=== PATIENT | male | born 1980 | race Caucasian/White ===

== ENCOUNTER → 2020-12-30 08:04 | Outpatient (CLI) | payer OTHER, SELFPAY ==
[2020-12-30 19:34] LABS: SARS-CoV-2 RNA PCR Positive
== END ==
DX: U07.1 COVID-19 (principal)
CPT/HCPCS: C9803; U0003; U0005

== ENCOUNTER 2022-12-03 08:11 | Outpatient (CLI) | payer BC, SELFPAY ==
[2022-12-03 08:59] LABS: Alanine Aminotransferase 54 U/L (6-50); Albumin Level 4.8 g/dL (3.5-5.1); Alkaline Phosphatase 43 U/L (38-126); Anion Gap 6 mmol/L (8-16); Aspartate Amino Transferase 34 U/L (17-59); Bilirubin,Total 0.8 mg/dL (0.2-1.3); Blood Urea Nitrogen 16 mg/dL (9-20); Calcium 9.5 mg/dL (8.4-10.2); Carbon Dioxide 29 mmol/L (22-30); Chloride 103 mmol/L (98-107); Cholesterol 258 mg/dL (0-200); Estimated Glomerular Filt Rate > 60; Glucose 107 mg/dL (65-110); HDL Direct 44 mg/dL; Potassium 4.7 mmol/L (3.4-5.0); Sodium 138 mmol/L (137-145); Triglycerides 179 mg/dL (<150)
[2022-12-03 09:10] LABS: LDL Cholesterol Direct 140 mg/dL
[2022-12-03 09:43] LABS: Vitamin D 25 Hydroxy 67.6 ng/mL
== END 2022-12-03 08:12 | disposition home or self-care (01) ==
LOC: ANHLAB 08:12
PROVIDERS: PCP Family Medicine; Visit Provider Family Medicine
DX: E78.5 Hyperlipidemia, unspecified (principal); E55.9 Vitamin D deficiency, unspecified; Z76.89 Persons encountering health services in other specified circumstances; Z13.29 Encounter for screening for other suspected endocrine disorder; Z13.228 Encounter for screening for other metabolic disorders; Z13.220 Encounter for screening for lipoid disorders
CPT/HCPCS: 36415; 80053; 80061; 82306; 84443

== ENCOUNTER 2023-07-28 08:52 | Outpatient (CLI) | payer OTHER, SELFPAY ==
--- NOTE | 2023-08-23 19:07 | WPDSLEEPSTUD ---
Sleep Study Date of Study: 07/28/23 Ordering Provider: Marco A Coley DO Interpreting Physician: Christine Marion DO Sleep Study Type: Polysomnogram Height: 1.83 m Weight: 90.718 kg Body Mass Index: 27.1 Neck Circumference (inches): 16 [place]: 8 Reason for Sleep Study Snoring, Dream enactment behavior Sleep History The patient is a 43-year-old male that a sleep study ordered by his primary care physician for evaluation of parasomnias. The patient frequently awakens from sleep short of breath. He rarely awakens at night with heartburn, belching or cough. He occasionally snores but is rarely loud enough that others complain. He occasionally has trouble sleeping when he has a cold. He frequently wakes up gasping for air throughout the night. He frequently has breathing problems at night observed by himself or others. He frequently sweats excessively at night. He occasionally has heart palpitations or irregular heartbeats during the night. He rarely falls asleep during the day but never while driving. He denies sleep paralysis and cataplexy. He rarely has trouble at school or work due to sleepiness. He occasionally experiences vivid dreamlike scenes upon awakening or falling asleep. He denies feeling afraid of going to sleep. He occasionally has nightmares. He frequently remembers his dreams. He rarely has thoughts racing through his mind. He occasionally feels sad or depressed. He frequently has anxiety. He occasionally has muscular tension. He frequently notices parts of his body jerk. He occasionally kicks during the night. He occasionally has crawling and aching feelings in his legs but rarely has leg pain during the night. He constantly grinds his teeth during sleep and frequently awakens with morning jaw pain. He is occasionally bothered by pain during the day but never awakened by pain during the night. He occasionally wakes up feeling stiff in the morning. He occasionally wakes up with sore or achy muscles. He frequently wakes up with pain in the neck, spine and other joints. He goes to bed between 11:00 p.m. to 2 12:00 a.m. on weekdays and between 11:00 p.m. to 1:00 a.m. on the weekends. It takes him 15 minutes to fall asleep. He wakes up 1-2 times throughout the night to urinate or 10 to his children. It takes him no longer than 5 minutes to fall back asleep. He wakes up at 6:30 a.m. on weekdays and 8:30 a.m. on the weekends. He typically gets 6-8 hours of sleep per night. He does not stay in bed longer than 10 minutes after waking up in the morning. He currently lives with his and 2 children. He denies consuming any caffeinated beverages within 2 hours of bedtime. He will engage in physical exercise before bedtime. He will read watch television before falling asleep. He denies taking naps in the afternoon or the evening. He consumes 2-3 caffeinated beverages per day. He quit smoking cigarettes 4 years ago. He consumes 1-2 beers few times per week. He denies recreational drug use. [facility] Family History Family History Father Diabetes mellitus Hypertension Mother Thyroid disease Social History Social History Social History: caffeine 2 cups coffee daily Smoking status: Current every day smoker (Vaping) Alcohol intake: current Drinks per week: 8 Alcohol use details: Beer Lack of Transportation: No Lack of Food: Never True Current Housing: I Have Housing Concerned About Future Housing: No Difficulty Paying Gas/Electric Bills: No Difficulty Paying for Meds: No Currently Unemployed: No Education: Master's Degree or Higher Difficulty w/ Childcare or Family Care: No Living arrangements: with family Occupation/Education: occupation Additional occupation/education comments: [employer] Medications Home Medications Medication Ins
[2023-08-23 19:08] VITALS: BMI 27.1
== END 2023-07-29 07:05 | disposition home or self-care (01) ==
LOC: ANHCSM 08:53
PROVIDERS: PCP Family Medicine; Visit Provider Family Medicine
DX: G47.10 Hypersomnia, unspecified (principal); G47.33 Obstructive sleep apnea (adult) (pediatric); G47.61 Periodic limb movement disorder
CPT/HCPCS: 95810

== ENCOUNTER 2023-12-23 07:47 | Outpatient (CLI) | payer OTHER, SELFPAY ==
[2023-12-23 08:52] LABS: Iron 122 ug/dL (49-181)
[2023-12-23 09:01] LABS: Percent Iron Saturation 35 % (20-50)
[2023-12-23 10:24] LABS: Alanine Aminotransferase 77 U/L (6-50); Albumin Level 4.7 g/dL (3.5-5.1); Alkaline Phosphatase 66 U/L (38-126); Anion Gap 4 mmol/L (4-12); Aspartate Amino Transferase 51 U/L (17-59); Bilirubin,Total 0.7 mg/dL (0.2-1.3); Blood Urea Nitrogen 15 mg/dL (9-20); Calcium 9.5 mg/dL (8.4-10.2); Carbon Dioxide 31 mmol/L (22-30); Chloride 102 mmol/L (98-107); Cholesterol 297 mg/dL (0-200); Estimated Glomerular Filt Rate > 60; Glucose 114 mg/dL (65-110); HDL Direct 48 mg/dL; Potassium 5.1 mmol/L (3.4-5.0); Sodium 137 mmol/L (137-145); Triglycerides 460 mg/dL (<150)
[2023-12-23 10:35] LABS: LDL Cholesterol Direct 148 mg/dL
== END 2023-12-23 07:48 | disposition home or self-care (01) ==
LOC: ANHLAB 07:48
PROVIDERS: PCP Family Medicine; Referring Provider Family Medicine; Visit Provider Family Medicine
DX: E78.5 Hyperlipidemia, unspecified (principal); D50.9 Iron deficiency anemia, unspecified; Z13.228 Encounter for screening for other metabolic disorders; Z13.220 Encounter for screening for lipoid disorders
CPT/HCPCS: 36415; 80053; 80061; 82728; 83540; 83550

== ENCOUNTER 2024-12-26 07:28 | Outpatient (CLI) | payer OTHER, SELFPAY ==
--- OUTSIDE RECORDS SUMMARY | 2024-12-26 07:30 | XMS_ITS | Clinical Summary ---
Author Organization [facility] Address [address] [place] [address] Care Team Providers Care Ring Making Machine Operator Name Role Phone PcpLucero Primary Care Provider Unav ailable Source Comments [facility],non-owned Affiliates and Associated Physician Practices is amultiple site organization consisting of ambulatory clinics and hospital sitesin [place], [place], [place] and [place]. This disclosure is being madepursuant to the Care Everywhere program and may not contain all information available regarding this patient. Last updated 17.[employer] Allergies No known active allergies Medications * Be aware that medications may not be up to date on this document. Alwaysverify current medications with the patient. cyclobenzaprine (FLEXERIL) 10 MG tablet Take 1 (one) tablet by mouth nightly as needed for Muscle Spasms 30 tablet 08/25/2021 Active nebivolol (Bystolic) 10 MG tablet TAKE 1 TABLET DAILY 90 tablet 07/01/2022 Active vitamin D, ergocalciferol, (Drisdol) 1.25 MG (93218 UT) capsule TAKE 1 CAPSULE EVERY 7 DAYS 12 capsule 3 10/21/2022 Active Active Problems Problem Noted Date Diagnosed Date JOHNY (generalized anxiety disorder) 03/27/2020 Vitamin D deficiency 03/27/2020 Somatic dysfunction of cervical region 8 Need for prophylactic vaccin ation and inoculation against influenza 11/28/2017 Hypercholesteremia 08/02/2017 Somatic dysfunction of spine, lumbar 06/27/2017 Somatic dysfunction of pelvis region 06/27/2017 Strain of lumbar region 06/27/2017 Screen for STD (sexually transmitted disease) Benign essential tremor 08/10/2016 Annual physical exam 08/10/2016 Immunizations Immunization Administration Dates Next Due INFLUENZA VACCINE, CELL CULT URE, QUADR. (FLUCELVAX QUADRIVALENT; 6MO+) (CCIIV4) 11/07/2019 INFLUENZA VACCINE, QUADR. (F LUZONE; FLULAVAL; FLUARIX; AFLURIA QUADRIVALENT; 6MO+), 0.5 ML (IIV4) 01/02/2019,11/28/2017 TDAP (7yrs+) 05/22/2011 Family History Relation Name Status Comments Father Alive Mother Alive Social History Tobacco Use Types Packs/Day Years Used Date Smoking Tobacco: Former Cigarettes 0 Q uit: 08/25/2019 Smokeless Tobacco: Never Tobacco Cessation:Counseling Given: No Alcohol Use Standard Drinks/Week Comments Yes 0 (1 standard drink = 0.6 oz pur e alcohol) PHQ-2 Answer Date Recorded PHQ2 TOTAL SCORE 0 08/25/2021 Sex and Gender Information Value Date Recorded Sex Assigned at Male 12/30/2020 10:09 AM HYDRAULIC BOOM OPERATOR Legal Sex Male 2:57 PM CDT Gender Identity Male 12/30/2020 10:09 AM HYDRAULIC BOOM OPERATOR Sexual Orientation Straight 12/30/2020 10 :09 AM HYDRAULIC BOOM OPERATOR Last Filed Vital Signs Vital Sign Reading Time Taken Comments Blood Pressure 110/70 08/25/2021 11:35 AM CDT Pulse 63 08/25/2021 11:35 AM CDT Temperature 36.7 C (98 F) 08/25/2021 11:35 AM CDT Respiratory Rate 16 08/02/2017 11:37 AM CDT Oxygen Saturation 97% 08/25/2021 11:35 AM CDT Inhaled Oxygen Concentration - - Weight 89.8 kg (198 lb) 08/25/2021 11:35 AM CDT Height 181.6 cm (5' 11.5) 08/25/2021 11:35 AM C DT Body Mass Index 27.23 08/25/2021 11:35 AM CDT Plan of Treatment Health Maintenance Due Date Last Done Comments HEPATITIS B VACCINE (1 of 3 - 19+ 3-dose series) 2001 HPV VACCINE (1 - 3-dose SCDM series) 2009 DTAP/TDAP/TD VACCINES (2 - Td or Tdap) 05/21/2021 05/22/2011 DEPRESSION SCREENING 02/15/2024 08/25/2021 COVID-19 VACCINE (3 - season) 2024 05/28/2020, 04/30/2020 INFLUENZA VACCINE (#1) 2024 0, 01/02/2019, 11/28/2017 LIPID TESTING 08/25/2026 08/25/2021, 03/17, 08/02/2017, Additional history exists ZOSTER VACCINE (1 of 2) 02/01/2032 HIV SCREENING Completed 08/24/2016 HEPATITIS C SCREENING Completed 03/27/2020 HIB VACCINE Aged Out No longer eligi ble based on patient's age to complete this topic MENINGOCOCCAL (Group B) VACCINE SHARED DECISION-MAKING Aged Out No longer eligible based on patient's age to complete this topic MENINGOCOCCAL GROUPS A/C/Y/W VACCINE Aged Out No longer eligible based on patient's age to complete this topic PNEUMOCOCCAL VACCINE Aged Out No long er eligible based on patient's age to complete this topic Procedures Procedure Name Priority Date/Time Associated Diagnosis Comments LIPID PROFILE Routine 08/25/2021 12:11 PM CDT Annual physical exam HEPATITIS C ANTIBODY Routine 03/27/2020 11:16 AM HYDRAULIC BOOM OPERATOR Annual physical exam HIV-1 HIV-2 ANTIGEN/ANTIBODY W RFLX Routine 08/24/2016 9:25 AM CDT Screen for STD (sexually transmitted disease) from Last 3 Months or Most Recently Relevant to Health Maintenance Results * (ABNORMAL) LIPID PROFILE (08/25/2021 12:11 PM CDT) Cholesterol 259(H) <200 mg/dL [facility] ACCOUNT BILL Triglycerides 206(H) <150 mg/dL [facility] ACCOUNT BILL HDL Cholesterol 51 >40 mg/dL [facility] ACCOUNT BILL VLDL Calculated 41(H) <=30 mg/dL [facility] ACCOUNT BILL LDL Calculated 167(H) <130 mg/dL [facility] ACCOUNT BILL Blood BLOOD SPECIMEN / Unknown 08/25/2021 12:11 PM CDT 08/25/2021 Narrative Resulting Agency Comment Lab Testing performed at: [address] Daisy [place] [id number] Kelvin Burr III, DO LAB - CHEMISTRY ORDERABLES Final Result Performing Organization Address City/[facility] de Phone Number [facility] ACCOUNT BILL [address] [place] [address] * HEPATITIS C ANTIBODY (03/27/2020 11:16 AM HYDRAULIC BOOM OPERATOR) Hepatitis C Antibody Non Reactive Non Reactive [facility] ACCOUNT BILL Comment: Non Reactive - Antibodies to Hepatitis C virus (HCV) were no t detected, result does not exclude early acute HCV infection. Blood BLOOD SPECIMEN / Unknown 03/27/2020 11:16 AM HYDRAULIC BOOM OPERATOR 03/27/2020 Narrative Resulting Agency Comment Lab Testing performed at: [address] Daisy [place] [id number] Kelvin Burr III, DO LAB - CHEMISTRY ORDERABLES Final Result Performing Organization Address [facility] de Phone Number [facility] ACCOUNT BILL [address] [place] [address] * HIV-1 HIV-2 ANTIGEN/ANTIBODY W RFLX (08/24/2016 9:25 AM CDT) Pathologist [facility] HIV Screen 4th Generation w Reflex Non Reactive Non Reactive [facility] ACCOUNT BILL Comment:FASTING Blood BLOOD SPECIMEN / Unknown 08/24/2016 9:25 AM CDT 08/24/2016 Narrative Resulting Agency Comment [facility] [place] [address] [facility] [id number] Kelvin Burr III, DO LAB - SEROLOGY ORDERABLES F inal Result Performing Organization Address [facility] Co de Phone Number [facility] ACCOUNT BILL [address] [place] [address] from Last 3 Months or Most Recently Relevant to Health Maintenance Insurance ANTH Care Teams Ring Making Machine Operator Relationship Specialty Start Date End Date Lucero Garcia PCP - General 09/10/22
--- OUTSIDE RECORDS SUMMARY | 2024-12-26 07:30 | XMS_ITS | Clinical Summary ---
Author Organization [facility] Address [address] [place] [address] Care Team Providers Care Supervisor Mending Name Role Phone Unavailable Primary Care Provider Unavailabl e Social History Tobacco Use Types Packs/Day Years Used Date Smoking Tobacco: Never Assessed Sex and Gender Information Value Date Recorded Sex Assigned at Not on file Legal Sex Male 7:07 PM CDT Gender Identity Not on file Sexual Orientation Not on file Plan of Treatment Health Maintenance Due Date Last Done Comments Annual Physical 1985 Hepatitis C 02/01/2000 DTaP, Tdap and Td Vaccines ( 1 - Tdap) 2001 Hepatitis B Vaccines (1 of 3 - 19+ 3-dose series) 2001 HPV Vaccines (1 - 3-dose SCD M series) 2009 COVID-19 Vaccine ( - 2024-2 6 season) 2024 Influenza Adult (#1) 2024 Hepatitis A Vaccines Aged Out No long er eligible based on patient's age to complete this topic Meningococcal B Vaccine Aged Out No l onger eligible based on patient's age to complete this topic Meningococcal Vaccine Aged Out No rashid meghan eligible based on patient's age to complete this topic Pneumococcal Vaccine: Pediat rics (0 to 5 Years) and At-Risk Patients (6 to 49 Years) Aged Out No longer eligible b ased on patient's age to complete this topic RSV Immunizations Under 20 Months Aged Out No longer eligible based on patient's age to complete this topic
[2024-12-26 07:50] LABS: Hematocrit 39.8 % (42.0-52.0); Hemoglobin 13.9 g/dL (14.0-18.0); Mean Corpuscular HGB Conc 34.9 g/dl (32-36); Mean Corpuscular Hemoglobin 30.8 pg (26-34); Mean Corpuscular Volume 88.2 fl (80-100); Platelet Count Result 219 k/mm3 (150-375); Red Blood Count 4.51 M/mm3 (4.6-6.20); White Blood Count 6.1 K/mm3 (4.5-10.0)
[2024-12-26 08:43] LABS: Hemoglobin A1C 5.1 % (<5.7)
[2024-12-26 08:53] LABS: Alanine Aminotransferase 64 U/L (6-50); Albumin Level 4.3 g/dL (3.5-5.1); Alkaline Phosphatase 60 U/L (38-126); Anion Gap 7 mmol/L (4-12); Aspartate Amino Transferase 42 U/L (17-59); Bilirubin,Total 0.5 mg/dL (0.2-1.3); Blood Urea Nitrogen 15 mg/dL (9-20); Calcium 9.0 mg/dL (8.4-10.2); Carbon Dioxide 25 mmol/L (22-30); Chloride 106 mmol/L (98-107); Cholesterol 246 mg/dL (0-200); Estimated Glomerular Filt Rate > 60; Glucose 103 mg/dL (65-110); HDL Direct 44 mg/dL; Potassium 4.4 mmol/L (3.4-5.0); Sodium 138 mmol/L (137-145); Total Protein 7.7 g/dL (6.3-8.2); Triglycerides 259 mg/dL (<150)
[2024-12-26 09:29] LABS: Thyroid Stimulating Hormone 2.940 uIU/mL (0.465-4.680)
[2024-12-26 12:56] LABS: Iron 132 ug/dL (49-181)
[2024-12-26 13:21] LABS: Percent Iron Saturation 40 % (20-50)
[2024-12-26 13:33] LABS: Ferritin 51.50 ng/mL (17.9-464)
== END 2024-12-26 07:29 | disposition home or self-care (01) ==
LOC: ANHLAB 07:29
PROVIDERS: PCP Family Medicine; Visit Provider Family Medicine
DX: F41.9 Anxiety disorder, unspecified (principal); Z13.0 Encounter for screening for diseases of the blood and blood-forming organs and certain disorders involving the immune mechanism; E78.5 Hyperlipidemia, unspecified; G47.61 Periodic limb movement disorder; G47.33 Obstructive sleep apnea (adult) (pediatric); Z79.899 Other long term (current) drug therapy
CPT/HCPCS: 36415; 80053; 80061; 82728; 83036; 83540; 83550; 84443; 85027